=== PATIENT | female | born 1990 | race Caucasian/White ===

== ENCOUNTER 2019-09-15 16:32 | Emergency (ER) | payer OTHER ==
[2019-09-15 16:45] VITALS: RESP 18
[2019-09-15 17:24] LABS: Appearance,Urine Cloudy (Clear); Bacteria,Urine Many /hpf; Bilirubin,Urine 1+ (Negative); Blood,Urine Small (Negative); Color,Urine Dark Brown; Glucose,Urine (UA) Negative (Negative); Hyaline Casts,Urine 4 /lpf (0-2); Ketones,Urine Negative (Negative); Leukocyte Esterase,Urine Large (Negative); Mucus,Urine Rare /hpf; Nitrite,Urine Positive (Negative); PH, Urine 5.5 (5.0-8.0); Protein,Urine 1+ (Negative); RBC,Urine 17 /hpf (0-5); Squamous Epithelial Cell,Urine 1 /hpf (0-4); WBC,Urine 163 /hpf (0-5)
[2019-09-15] MEDS ORDERED: cefTRIAXone 1,000 MG VIAL (IM USE) IM STA (17:59)
--- NOTE | 2019-09-15 18:21 | ED ---
General Adult HPI - General Chief complaint: Urogenital Stated complaint: UTI Time Seen by Provider: 09/15/19 16:47 Source: patient, RN notes reviewed Mode of arrival: ambulatory Limitations: no limitations - History of Present Illness Initial comments: 28-year-old female with a past medical history of psoriasis currently taking Humira presents to the emergency department for a chief complaint of dysuria. Patient states she has had pain with urination as well as suprapubic pressure and increased urinary frequency for the past 4 days. States she has tried taking Azo but it is not helping. States it is actually seeming to get worse. Denies any fevers or chills. Patient denies any back pain. Does admit to suprapubic pressure. Denies any significant abdominal pain.Patient has no other complaints at this time including shortness of breath, chest pain, abdominal pain, nausea or vomiting, headache, or visual changes. - Related Data Previous Rx's Medication Instructions Recorded Cephalexin [Keflex] 500 mg PO Q6H 14 Days #56 cap 09/15/19 Allergies Allergy/AdvReac Type Severity Reaction Status Date / Time adhesive tape AdvReac Rash/Hives Verified 09/15/19 16:45 Review of Systems ROS Statement: Those systems with pertinent positive or pertinent negative responses have been documented in the HPI. ROS Other: All systems not noted in ROS Statement are negative. Past Medical History Additional Past Medical History / Comment(s): psorisis History of Any Multi-Drug Resistant Organisms: None Reported Additional Past Surgical History / Comment(s): left thumb surgery Past Psychological History: No Psychological Hx Reported Smoking Status: Never smoker Past Alcohol Use History: None Reported Past Drug Use History: None Reported General Exam Limitations: no limitations General appearance: alert, in no apparent distress Head exam: Present: atraumatic, normocephalic, normal inspection Eye exam: Present: normal appearance, PERRL, EOMI. Absent: scleral icterus, conjunctival injection, periorbital swelling ENT exam: Present: normal exam, mucous membranes moist Neck exam: Present: normal inspection, full ROM. Absent: tenderness, meningismus, lymphadenopathy Respiratory exam: Present: normal lung sounds bilaterally. Absent: respiratory distress, wheezes, rales, rhonchi, stridor Cardiovascular Exam: Present: regular rate, normal rhythm, normal heart sounds. Absent: systolic murmur, diastolic murmur, rubs, gallop, clicks GI/Abdominal exam: Present: soft, tenderness (Minimal suprapubic tenderness, no upper abdominal tenderness.), normal bowel sounds. Absent: distended, guarding, rebound, rigid Back exam: Absent: CVA tenderness (R), CVA tenderness (L) Neurological exam: Present: alert Course Vital Signs 09/15/19 16:42 Temperature 98.6 F Pulse Rate 93 Respiratory 18 Rate Blood Pressure 108/70 O2 Sat by Pulse 100 Oximetry Medical Decision Making - Medical Decision Making 28-year-old female currently taking Humira for psoriasis, otherwise healthy. She is well appearing on exam. Nontoxic. Vitals are stable. Patient is afebrile. Denies any significant abdominal pain besides suprapubic pressure. No CVA tenderness or back pain. Patient does have urinary tract infection noted with 163 white blood cells and a positive nitrite. Culture pending. Given no abdominal pain or CVA tenderness low suspicion for pyelonephritis. Patient will be treated for urinary tract infection with IM Rocephin and then Keflex outpatient. She will follow up with primary care in 1-2 days. She'll return here if she has any worsening symptoms. I discussed this case with attending Dr. Ontiveros who agrees with this assessment and treatment plan. - Lab Data Lab Results 09/15/19 09/15/19 Range/Units 17:00 17:00 Urine Color Dark Brown Urine Appearance Cloudy H (Clear) Urine pH 5.5 (5.0-8.0) Ur Specific [place] 1.010 (1.001-1.035) Urine Protein 1+ H (Negative) Urine Glucose (UA) Negative (Negative) Urine Ketones Negative (Negative) Urine Blood Small H (Negative) Urine Nitrite Positive H (Negative) Urine Bilirubin 1+ H (Negative) Urine Urobilinogen 2.0 (<2.0) mg/dL Ur Leukocyte Esterase Large H (Negative) Urine RBC 17 H (0-5) /hpf Urine WBC 163 H (0-5) /hpf Urine WBC Clumps Many H (None) /hpf Ur Squamous Epith Cells 1 (0-4) /hpf Urine Bacteria Many H (None) /hpf Hyaline Casts 4 H (0-2) /lpf Urine Mucus Rare H (None) /hpf Urine HCG, Qual Not Detected (Not Detectd) Disposition Clinical Impression: Urinary tract infection Disposition: HOME SELF-CARE Condition: Good Instructions (If sedation given, give patient instructions): Urinary Tract Infection in Women (ED) Additional Instructions: Please take antibiotic as directed. This was prescribed to Jimmie Burgos on [address]. Drink plenty of fluids. If you have any fevers or develop upper back pain or any other worsening symptoms return immediately to the emergency depar tment. Otherwise follow-up with her primary care provider in one to 2 days. As discussed you will receive a call in about 2 days if urine culture requires a different antibiotic. Prescriptions: Cephalexin [Keflex] 500 mg PO Q6H 14 Days #56 cap Is patient prescribed a controlled substance at d/c from ED?: No Referrals: Karo Elder MD [REFERRING] - 1-2 days Time of Disposition: 18:21
[2019-09-15 18:37] VITALS: BP 110/78; PULSE 78; TEMP 98.3
[2019-09-17 15:20] LABS: N. gonorrhoeae,PCR Negative (Neg,Equiv); Neisseria Source Urine
[2019-09-17 15:59] LABS: C. trachomatis,PCR Negative (Neg,Equiv); Chlamydia trachomatis Source Urine
== END 2019-09-15 18:37 | disposition home or self-care (01) ==
LOC: EC 16:32
DX: N39.0 Urinary tract infection, site not specified (principal); Z32.02 Encounter for pregnancy test, result negative; Z91.048 Other nonmedicinal substance allergy status
CPT/HCPCS: 81001; 81025; 87491; 87591; 87086; 99283; 96372; J0696; 87077; 87186